=== PATIENT | male | born 1980 | race Asian ===

== ENCOUNTER 2018-07-02 05:12 | Inpatient (IN) | payer OTHER ==
[2018-07-02] VITALS (9 sets, daily range): BP systolic 101–126; BP diastolic 63–87
[~2018-07-02] VITALS: Ht 170.2 cm; Wt 67.6 kg
[2018-07-02] MEDS ORDERED: SEROQUEL100 MG ORAL (05:58)
[2018-07-02] MEDS ORDERED: CELEXA20 MG ORAL (05:58)
[2018-07-02] MEDS ORDERED: HYDROCODON-ACE1 EA13 ORAL (05:58)
[2018-07-02] MEDS ORDERED: GABAPENTIN300 MG ORAL (05:58)
[2018-07-02] MEDS ORDERED: Zemuron 50mg/5ml Inj IV ONE (06:04)
[2018-07-02] MEDS ORDERED: LR 1000ml 1,000 ML IVLG SCH (06:17)
--- NOTE | 2018-07-02 06:20 | Anethesia Preoperative Eval ---
Anesthesia Pre-op PMH/ROS General Date of Evaluation: Jul 02, 2018 Time of Evaluation: 07:01 Anesthesiologist: Haylee ASA Score: ASA 2 Mallampati Score Class I : Soft palate, uvula, fauces, pillars visible Class II: Soft palate, uvula, fauces visible Class III: Soft palate, base of uvula visible Class IV: Only hard plate visible Mallampati Classification: Class II Surgeon: Justin Diagnosis: Back Pain Surgical Procedure: L5-S1 Microdiscectomy Anesthesia History: none Family History: no anesthesia problems Allergies: Coded Allergies: No Known Allergies (Unverified , 07/01/18) Medications: see eMAR Past Medical History Gastrointestinal/Genitourinary: Reports: other - Gastric Ulcer Neurologic/Psychiatric: Reports: depression/anxiety PSxH Narrative: Adele COLIN 2012 Anesthesia Pre-op Phys. Exam Physician Exam Last Vital Signs Date Time Temp Pulse Resp B/P (MAP) Pulse Ox O2 Delivery O2 Flow Rate FiO2 07/02/18 06:06 Room Air 07/02/18 05:59 97.8 65 18 126/76 (93) 100 97.8 Constitutional: NAD Neurologic: CN 2-12 intact Cardiovascular: RRR Respiratory: CTA Gastrointestinal: S/NT/ND Airway Exam Mallampati Score: Class II MO: full ROM: full Teeth: missing, intact Anesthesia Pre-op A/P Risk Assessment & Plan Assessment: ASA 2 Plan: GA, BIS, GlideScope Status Change Before Surgery: No Pre-Antibiotics Dru Grams Ancef IV Given Within 1 Hr of Incision: Yes Time Given: 07:21 Owen Leach MD Jul 02, 2018 06:20
[2018-07-02] MEDS ORDERED: HYDROcodone/Acetamin 7.5/325 tab ORAL PRN (06:30)
[2018-07-02] MEDS ORDERED: Ketorolac 30mg Inj IV PRN ×2 (06:30)
[2018-07-02] MEDS ORDERED: LORazepam Inj 2mg/ml 1ml IV PRN (06:30)
[2018-07-02] MEDS ORDERED: Norco 5mg/325mg tab ORAL PRN (06:30)
[2018-07-02] MEDS ORDERED: Hydromorphone 0.5mg/0.5ml inj IVP PRN (06:30)
[2018-07-02] MEDS ORDERED: Labetalol 5mg/ml 20ml vial IV PRN (06:30)
[2018-07-02] MEDS ORDERED: oxyCODONE HCL/Acetaminophen 5/325mg ORAL PRN (06:30)
[2018-07-02] MEDS ORDERED: fentaNYL 100 mcg/2 mL IV PRN (06:30)
[2018-07-02] MEDS ORDERED: Midazolam 2mg/2ml Inj IVP PRN (06:30)
[2018-07-02] MEDS ORDERED: Metoclopramide 10mg/2ml Inj IVP PRN (06:30)
[2018-07-02] MEDS ORDERED: DiphenhydrAMINE 50mg/ml Inj IVP PRN (06:30)
[2018-07-02] MEDS ORDERED: Atropine Inj 1mg/10ml Syr IV PRN (06:30)
[2018-07-02] MEDS ORDERED: Acetaminophen (Non formulary) 100 ML IV SCH (06:30)
[2018-07-02] MEDS ORDERED: Dexamethasone 4mg/ml vial ONE (06:33)
[2018-07-02] MEDS ORDERED: Lidocaine 1% MPF 10mg/ml 5ml ONE (06:33)
[2018-07-02] MEDS ORDERED: Sodium Chloride 10ml vial INJ ONE (06:33)
[2018-07-02] MEDS ORDERED: Lidocaine 1% Plain 30 ml INJ ONE ×2 (06:35→06:41)
[2018-07-02] MEDS ORDERED: EPINEPHrine 1mg/1ml Amp ONE (06:38)
[2018-07-02] MEDS ORDERED: Vancomycin 1gm inj IVPB ONE (06:38)
[2018-07-02] MEDS ORDERED: Bupivacaine 0.5% Inj 30 ml vial INJ ONE (06:39)
[2018-07-02] MEDS ORDERED: Bacitracin 50000 Units Vial ONE (06:39)
[2018-07-02] MEDS ORDERED: Thrombin 5000 units TOPIC ONE ×4 (06:39→08:46)
[2018-07-02] MEDS ORDERED: Gelfoam Size TOPIC ONE (06:40)
[2018-07-02] MEDS ORDERED: fentaNYL 100 mcg/2 mL IV ONE ×2 (06:42→08:34)
[2018-07-02] MEDS ORDERED: ceFAZolin sod 1 GM in NS 55 ML IVPB SCH (07:00)
[2018-07-02] MEDS ORDERED: Propofol 1,000mg/ 100ml btl IV ONE (07:00)
[2018-07-02] MEDS ORDERED: Sterile Water Irrig 1000ml IRRIG ONE (07:00)
[2018-07-02] MEDS ORDERED: LR 1000ml ONE (07:00)
[2018-07-02] MEDS ORDERED: Dexamethasone 20mg/5ml IVP SCH (07:00)
--- NOTE | 2018-07-02 07:07 | Immediate Post-Op Evaluation ---
Immediate Post-Op Evalulation Immediate Post-Op Evalulation Procedure: L5-S1 Microdiscectomy Date of Evaluation: Jul 02, 2018 Time of Evaluation: 09:43 IV Fluids: 1000 LR Blood Products: 0 Estimated Blood Loss: 50 Urinary Output: 0 Blood Pressure Systolic: 110 Blood Pressure Diastolic: 62 Pulse Rate: 67 Respiratory Rate: 16 O2 Sat by Pulse Oximetry: 100 Temperature (Fahrenheit): 98 Pain Score (1-10): 3 Nausea: No Vomiting: No Complications 0 Patient Status: awake, reacts, patent, extubated, none Hydration Status: adequate Dru Grams Ancef IV Given Within 1 Hr of Incision: Yes Time Given: 07:21 Owen Leach MD Jul 02, 2018 07:07
--- NOTE | 2018-07-02 07:08 | 48 Hour Post Anesthesia Eval ---
Post Anesthesia Evaluation Procedure: L5-S1 Microdiscectomy Date of Evaluation: Jul 02, 2018 Time of Evaluation: 13:56 Blood Pressure Systolic: 112 0: 71 Pulse Rate: 74 Respiratory Rate: 18 Temperature (Fahrenheit): 98.4 O2 Sat by Pulse Oximetry: 100 Airway: patent Nausea: No Vomiting: No Pain Intensity: 3 Hydration Status: adequate Cardiopulmonary Status: Stable Mental Status/LOC: patient returned to baseline Follow-up Care/Observations: 0 Post-Anesthesia Complications: 0 Follow-up care needed: ready to discharge Owen Leach MD Jul 02, 2018 07:08
--- NOTE | 2018-07-02 07:10 | Pre-Procedure Note/Attestation ---
Pre-Procedure Note/Attestation Complete Prior to Procedure Planned Procedure: not applicable Procedure Narrative: L5-S1 microdiscectomy Attestation I attest that I discussed the nature of the procedure; its benefits; risks and complications; and alternatives (and the risks and benefits of such alternatives ), prior to the procedure, with the patient (or the patient's legal appeals representative). I attest that, if there was a reasonable possibility of needing a blood transfusion, the patient (or the patient's legal appeals representative) was given the [facility] standardized written summary, pursuant to the [place] Blood Safety Act ([place] Health and Safety Code # 1645, as amended). I attest that I re-evaluated the patient just prior to the surgery and that there has been no change in the patient's H&P, except as documented below: JOSSE HERNANDEZ Jul 02, 2018 07:10
[2018-07-02] MEDS ORDERED: NS Irrig 1000ml IRRIG ONE (08:43)
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
--- NOTE | 2018-07-02 09:18 | Brief Operative Note ---
Immediate Post Operative Note Operative Note Pre-op Diagnosis: L5-S1 HNP trauma radiculopathy Procedure: L5-S1 Microdiscectomy L5 Inferior Hemilaminotomy, Superior S1 hemilaminotomy Local High Power microdissection X-Ray Post-op Diagnosis: same as pre-op Surgeon: Justin Ph.D., M.D. Welder Apprentice Gas: Shobha PEREIRA Anesthesiologist: Haylee RUGGIERO Anesthesia: general Specimen: yes Complications: none Condition: stable Fluids: anesthesia Estimated Blood Loss: minimal Drains: none Implant(s) used?: No JOSSE HERNANDEZ Jul 02, 2018 09:18
[2018-07-02] MEDS ORDERED: Glycopyrrolate 0.2mg/ml 1ml Vial ONE ×2 (09:19→09:22)
[2018-07-02] MEDS ORDERED: Neostigmine 1mg/ml 10ml Inj ONE (09:19)
--- NOTE | 2018-07-02 10:41 | Diagnostic Imaging Report ---
Indication: Back pain Technique: Single lateral intraoperative fluoroscopic image from spinal surgery submitted for archival the PACS. Operating surgeon: Justin Total fluoroscopy time 4.8 seconds Total fluoroscopy dose 1.23 mGy Comparison: None Findings: Single intraoperative lateral spot fluoroscopic image of the lumbosacral spine demonstrate surgical instruments projecting posteriorly over the level of L5-S1. Impression: Intraoperative fluoroscopic image. Please see operative report.
[2018-07-02] MEDS ORDERED: Chloraseptic Spray 20mL Bottle ORAL PRN (11:15)
[2018-07-02] MEDS ORDERED: Morphine Sulfate 4mg/ml Inj (IV USE ONLY) IM PRN (11:17)
[2018-07-02] MEDS ORDERED: D5 1/2NS 1,000 ML IV SCH (11:18)
[2018-07-02] MEDS ORDERED: Naloxone 0.4mg/ml Inj IVP PRN (11:19)
[2018-07-02] MEDS: HYDROcodone/Acetamin 10/325 tab ORAL PRN ×2 (11:29→15:32)
[2018-07-02] MEDS ORDERED: Dronabinol 2.5mg Cap ORAL SCH (12:00)
[2018-07-02] MEDS ORDERED: ceFAZolin sod 1 GM in D5W 55 ML IV SCH (15:30)
[2018-07-02] MEDS ORDERED: Tubing IV Secondary IV ONE (16:04)
--- NOTE | 2018-07-02 17:00 | Operative Note - Dictated ---
DATE OF OPERATION: 07/02/2018 PRIMARY SURGEON: Chano Anderson, Ph.D, M.D. HAND FOLDER: KELLI Maria. ANESTHESIA: General with intubation with Dr. Leach. ADMITTING/PREOPERATIVE DIAGNOSIS: Posttraumatic lumbar herniated nucleus pulposus, L5-S1 with radiculopathy/pain. POSTOPERATIVE DIAGNOSIS: Posttraumatic lumbar herniated nucleus pulposus, L5-S1 with radiculopathy/pain. OPERATIVE PROCEDURE: 1. Brian laminotomy inferior L5, superior S1, microdiscectomy L5-S1. 2. Local anesthetic applied by surgeon. 3. High-powered microscopic dissection. 4. Intraoperative x-rays interpreted by surgeon. SPECIMEN: Disc fragments to pathology. COMPLICATIONS: None. ESTIMATED BLOOD LOSS: Minimal. POSTOPERATIVE CONDITION: Good/stable. PROCEDURE: The patient was brought to the operating room and in the supine position. General anesthesia with intubation was induced. IV antibiotics, IV Decadron were administered 30 minutes prior to incision time. The patient was carefully turned and positioned in the prone position. Lumbodorsal spine was sterilely prepped. Spinal needle was placed midline in the subcutaneous tissue only under sterile conditions. Cross-table image obtained under sterile conditions demonstrating the correct level for incision placement. Level marked with removal of the needle. Back resterilely prepped and draped free in the usual sterile fashion. A longitudinal midline incision at the appropriate interval was sharply placed the dermis and epidermis. Electrocautery dissection was carried through the subcutaneous tissue to the level of the lumbodorsal fascia, was incised right and left of midline over the appropriate intervals. Marker placed, cross-table imaging obtained interpreted by surgeon-under sterile conditions,-demonstrating correct level for further dissection. Position of the marker recorded. Marker removed. Retractors placed. Under high-power magnification, brian laminotomy bilaterally inferior L5, superior S1 was performed. No dural tears or leaks anytime during the procedure. Dissection was carried right lateral of the dural tube with protection of the exiting nerve root. Identification of a herniated nucleus polyposis identified. Annulotomy followed with microdiscectomy not exceeding 11 mm in posterior to anterior, lateral to medial. No gross bleeding at any time to the disc space. Disk space irrigated antibiotic-containing saline. No further fragments identified. Exploration revealed no further posterior disc prominence past midline from right to left. Dorsal foramen open bilaterally. Disc/foraminal interval open bilaterally. Wound irrigated with antibiotic-containing saline. FloSeal applied appropriately. Sequential reapproximation with 0 Vicryl suture material of the lumbodorsal fascia, subcutaneous tissue. Dermis and epidermis reapproximated subcuticular closure followed the application of transverse surgical strips - following lidocaine bilateral lateral aspects of the incision at the dermal/subcutaneous interval. Sterile bandage applied and maintained in place with tape. The patient was carefully turned from the prone to the supine position on the transport bed where he was awakened, extubated in the operating room, and transported to postop recovery in good stable condition. Chano Anderson M.D. DR: SINCERE JOB#: [id number] CC:
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
== END 2018-07-02 16:05 | disposition home or self-care (01) | DRG 520 ==
LOC: SUR 05:12 → 3E 10:50
PROC: 0SB40ZZ Excision of Lumbosacral Disc, Open Approach (ICD-10-PCS; principal; 2018-07-02 07:00)
DX: M51.17 Intervertebral disc disorders with radiculopathy, lumbosacral region (principal); V89.2XXS Person injured in unspecified motor-vehicle accident, traffic, sequela; Z89.512 Acquired absence of left leg below knee; F17.200 Nicotine dependence, unspecified, uncomplicated; F15.21 Other stimulant dependence, in remission; K27.9 Peptic ulcer, site unspecified, unspecified as acute or chronic, without hemorrhage or perforation
CPT/HCPCS: 72020; 76001; 94003; 94150; J2405; J2710